=== PATIENT | female | born 1960 | race Caucasian/White ===

== ENCOUNTER 2016-10-06 12:08 | Day surgery (SDC) | payer OTHER ==
[~2016-10-06] VITALS: Ht 162.6 cm; Wt 56.2 kg
[~2016-10-06 12:08] MED LIST: ALBU18HF IH; BUDE6HFA IH; CALCIUM PO; CHOL50009 PO; ESCI10TA PO; LEVO50TA74 PO; SYMB80120 INH; VITAMINS PO
[2016-10-06 12:52] VITALS: Ht 162.6 cm; Wt 56.2 kg
[2016-10-06] MEDS ORDERED: OMEP40CA6 PO (12:58)
[2016-10-06] MEDS ORDERED: FLAX1CAP3 PO (12:58)
[2016-10-06 13:22] VITALS: BP 90/61; PULSE 68; RESP 19
[2016-10-06] MEDS ORDERED: PROPOFOL 40 ML ONE (14:24)
[2016-10-06] MEDS ORDERED: LIDOCAINE 2% (SDV) 5 ML INJ ONE (14:24)
[2016-10-06] MEDS ORDERED: EPHEDrine SULFATE 50 MG/5 ML SYG ONE (14:59)
[2016-10-06 15:28] VITALS: BP 105/65; PULSE 76; RESP 12
--- NOTE | 2016-10-30 14:46 | GILP ---
DATE OF PROCEDURE: 10/06/2016 PROCEDURE: Colonoscopy to cecum. BRIEF HISTORY AND INDICATIONS: The patient here for colorectal cancer screening. PREMEDICATION: Monitored anesthesia care by anesthesiologist. SURGEON: Chasity Franz MD INSTRUMENT USED: Olympus colonoscope. PREPARATION: Adequate. TECHNIQUE: After informed consent, with the patient/relatives understanding the procedure, its indic ations potential risks and complications, including but not limited to: allergic reaction, bleeding, perforation, infection, missed lesions and after all pertinent questions were answered to the patie nt's satisfaction, the patient/relatives signed the witnessed informed consent. Following this, premedication was administered slowly IV push by under careful cardiovascular and re spiratory monitoring with pulse oximetry, automatic blood pressure and clinical research monitor. Once the sedativ e effect was achieved, the patient was placed in the left lateral decubitus position, digital rectal examination was performed. The colonoscope was then introduced and advanced under visual control th roughout all segments of the colon including: the rectum, sigmoid, descending colon, splenic flexure , transverse colon, hepatic flexure, ascending colon and finally reaching the cecum which was clearl y identified by transillumination, finger indentation and the ileocecal valve. Careful examination o f the mucosa of the lower gastrointestinal tract both on insertion as well as withdrawal of the inst rument disclosed the following findings: Rectal Examination: No evidence of perirectal disease, no masses. Colonic Mucosa: The colonic mucosa is unremarkable throughout. The ileocecal valve was clearly stacey ntified and appears unremarkable. The instrument was withdrawn reexamining the mucosa in detail. N o additional abnormalities are noted with the exception of moderate-sized internal hemorrhoids. The instrument was then withdrawn, the patient tolerated the procedure well and was transferred out of the endoscopy suite awake and in good condition to continue recovery under observation. IMPRESSION: Moderate-sized internal hemorrhoids, otherwise normal colonoscopy to cecum. PLAN: The patient will be followed up as an outpatient. Annual Hemoccult stool testing is recommen ded and screening colonoscopy in 10 years is recommended. Dictated By: CHASITY FRANZ MS/STEVEN Conf#: [id number] DID#: [id number] CC: CHASITY FRANZ;*EndCC*
--- NOTE | 2016-10-30 14:52 | GILP ---
DATE OF PROCEDURE: 10/06/2016 PROCEDURE: Esophagogastroduodenoscopy with biopsies. BRIEF HISTORY AND INDICATIONS: The patient is being evaluated for history of H. pylori, which has n ot been fully eradicated due to the patient's intolerance to several antibiotic regimens. The patie nt continues to experience significant pyrosis and dyspepsia. PREMEDICATION: Monitored anesthesia care by anesthesiologist. SURGEON: Chasity Franz MD. INSTRUMENT USED: Olympus panendoscope. TECHNIQUE: After informed consent, with the patient/relatives understanding the procedure, its indic ations, potential risks and complications, including but not limited to: allergic reaction, bleeding , perforation or infection, and after all pertinent questions were answered to the patients satisfac tion, the patient/relatives signed witnessed informed consent. Following this, premedication was ad ministered slowly IV push under careful cardiovascular and respiratory monitoring with pulse oximetr y, automatic blood pressure and day guard. Once the sedative effect was achieved the patient was place in the left lateral decubitus, the panendoscope was introduced and advanced under visual contr ol. Careful examination of the upper gastrointestinal tract, both on insertion as well as withdrawal of the instrument disclosed the following findings: ESOPHAGUS: The distal esophagus shows erythema and edema of the mucosa of a moderate degree. Biops ies were obtained to rule out H. pylori infection as the EG junction appears irregular and proximall y displaced at least 1 cm. STOMACH: Upon entrance to the stomach, air was insufflated, the gastric sterling distended normally. There is erythema and edema of the mucosa of a moderate degree. Biopsies were obtained to rule out H. pylori infection. PYLORUS: The pylorus appears patent and within normal limits, with no evidence of gastric outlet ob struction. DUODENUM: The duodenal mucosa was carefully examined in the duodenal bulb as well as the second por tion of the duodenum and appears unremarkable with no evidence of duodenitis, ulcer or neoplasm. The instrument was then withdrawn, the patient tolerated the procedure well and was transfer out of the endoscopy suite awake, and in good condition to continue recovery under observation IMPRESSION: 1. Distal esophagitis, moderate. 2. Rule out Duarte's esophagus, biopsies obtained. 3. Gastritis, rule out Helicobacter pylori infection, biopsies obtained. PLAN: The patient will be continued on PPIs. Pathology will be reviewed as soon as available. Fur ther recommendations will depend on the patient's clinical course as well as review of biopsies. Dictated By: CHASITY FRANZ MS/STEVEN Conf#: [id number] DID#: [id number] CC: CHASITY FRANZ;*EndCC*
== END 2016-10-06 19:23 | disposition home or self-care (01) ==
LOC: GIL 12:08
PROVIDERS: ATTEND Internal Medicine Gastroenterology
DX: Z12.11 Encounter for screening for malignant neoplasm of colon (principal); K29.50 Unspecified chronic gastritis without bleeding; K20.8 Other esophagitis; J45.909 Unspecified asthma, uncomplicated
CPT/HCPCS: 43239; 45378; 88305; 88312; 88313; Z7610